=== PATIENT | male | born 1995 | race Two or more races ===

== ENCOUNTER 2023-01-19 18:17 | Emergency (ER) | payer OTHER ==
[~2023-01-19] VITALS: Ht 170.2 cm; Wt 61.2 kg
[2023-01-19] MEDS ORDERED: CEFADROXIL500 MG PO (21:24)
[2023-01-19] MEDS ORDERED: MEDROLPACK PO (21:24)
== END 2023-01-19 21:28 | disposition home or self-care (01) ==
LOC: ER 18:17
DX: L23.7 Allergic contact dermatitis due to plants, except food (principal); T65.891A Toxic effect of other specified substances, accidental (unintentional), initial encounter; Y92.89 Other specified places as the place of occurrence of the external cause; L03.116 Cellulitis of left lower limb